=== PATIENT | female | born 1990 | race Two or more races ===

== ENCOUNTER 2019-12-08 14:47 | Inpatient (IN) | payer OTHER ==
[~2019-12-08 14:47] MED LIST: Bupivacaine 0.25% 10 ML SDV ONE
[2019-12-08] MEDS ORDERED: diphenhydrAMINE 50 MG/ML SDV IVPUSH PRN (14:54)
[2019-12-08] MEDS ORDERED: Bupivacaine/fentaNYL/NS 100 ML Bag EPIDUR PRN (14:54)
[2019-12-08] MEDS ORDERED: ePHEDrine 50 MG/ML SDV IVPUSH PRN (14:54)
[2019-12-08] MEDS ORDERED: fentaNYL 100 MCG/2 ML SDV EPIDUR PRN (14:54)
[2019-12-08] MEDS ORDERED: Sodium Chloride 0.9% 10 ML Syringe FLUSH PRN (15:02)
[2019-12-08] MEDS ORDERED: Oxytocin/Lactated Ringers 10 UNIT/1,000 ML BAG IV SCH (15:15)
[2019-12-08] MEDS ORDERED: Lactated Ringers 1,000 ML IV SCH (15:15)
--- NOTE | 2019-12-08 15:20 | PCM.LDHP ---
L&D History of Present Illness - General Date of Service: 12/08/19 Admit Problem/Dx: Patient Status Order with Admit Dx/Problem 12/08/19 15:02 Patient Status [ADT] Routine Admission Diagnosis/Problem Admission Diagnosis/Problem Source of Information: Patient History Limitations: Reports: No Limitations - History of Present Illness Introduction:: 28 y/o AMRIK 12/20/2019 EGA 38w2d seen earlier in L&D dismissed, howevere contractions increased in frequency and suration and returned to L&D and 9 cm dilated. GBS negative. blood type A positive antibody screen negative, hemoglobin/hematocrit 12.6/37.8 platelets 292,000 rubella immune. On 10/01/19 serology nonreactive. On 06/11/2019 mixed [place] on urine culture, hepatitis B surface antigen and HIV were negative. GC, a probe negative. 10/01/19 hemoglobin/hematocrit 10.0/31.4 platelets 277,001 hour OB glucose screen 119. 1/ hemoglobin/hematocrit 11.4/36.4 platelets 252,000. To08/03/20 group B strep negative. Plan delivery Improves with: Reports: None Worsens with: Reports: None Associated Symptoms: Reports: N H&P Review of Systems - Review of Systems: Review Of Systems: See Below General: Reports: No Symptoms HEENT: Reports: No Symptoms Pulmonary: Reports: No Symptoms Cardiovascular: Reports: No Symptoms Gastrointestinal: Reports: No Symptoms Genitourinary: Reports: No Symptoms Musculoskeletal: Reports: No Symptoms Skin: Reports: No Symptoms Psychiatric: Reports: No Symptoms Neurological: Reports: No Symptoms Hematologic/Lymphatic: Reports: No Symptoms Immunologic: Reports: No Symptoms L&D Exam - Exam Exam: See Below - OB Specific Fundal Height In cm: 39 Contraction Duration (sec): 60 Contraction Frequency (min): 3 Contraction Intensity: Strong Movement: Active Heart Tones: Present Heart Rate (FHR) Variability: Moderate (6-25 bmp) Presentation: Vertex - Tillman Score Tillman Score Cervix Position: Anterior Tillman Score Consistency: Soft Tillman Score Effacement: >80% Tillman Score Dilation: > 5 cm Tillman Score Infant's Station: +1, +2 Tillman Score Total: 13 - Exam General: Alert, Oriented HEENT: Conjunctiva Clear, Mucosa Moist & [place] Neck: Supple, Trachea Midline Lungs: Clear to Auscultation, Normal Respiratory Effort Cardiovascular: Regular Rate, Regular Rhythm GI/Abdominal Exam: Normal Bowel Sounds, Soft, Non-Tender Genitourinary: Normal external exam Extremities: Normal Inspection, Non-Tender, No Pedal Edema, Normal Capillary Refill Skin: Warm, Dry Psychiatric: Alert, Normal Affect, Normal Mood - Patient Data Lab Results Last 24 hrs: Laboratory Results - last 24 hr 12/08/19 Range/Units 15:01 WBC 9.56 (3.98-10.04) K/mm3 RBC 4.71 (3.98-5.22) M/mm3 Hgb 12.7 (11.2-15.7) gm/dl Hct 39.6 (34.1-44.9) % MCV 84.1 (79.4-94.8) fl MCH 27.0 (25.6-32.2) pg MCHC 32.1 L (32.2-35.5) g/dl RDW Std Deviation 55.5 H (36.4-46.3) fL Plt Count 240 (182-369) K/mm3 MPV 9.8 (9.4-12.3) fl Neut % (Auto) 68.2 (34.0-71.1) % Lymph % (Auto) 25.0 (19.3-51.7) % [place] % (Auto) 6.0 (4.7-12.5) % Eos % (Auto) 0.4 L (0.7-5.8) Baso % (Auto) 0.1 (0.1-1.2) % Neut # (Auto) 6.52 H (1.56-6.13) K/mm3 Lymph # (Auto) 2.39 (1.18-3.74) K/mm3 [place] # (Auto) 0.57 H (0.24-0.36) K/mm3 Eos # (Auto) 0.04 (0.04-0.36) K/mm3 Baso # (Auto) 0.01 (0.01-0.08) K/mm3 Result Diagrams: 12/08/19 15:01 - Problem List (1) 38 weeks gestation of SNOMED Code(s): 35969391 ICD Code: Z3A.38 - 38 WEEKS GESTATION OF Status: Acute Current Visit: Yes Problem List Initiated/Reviewed/Updated: No Orders Last 24hrs: Active Orders 24 hr Category Date Time Status Patient Status [ADT] Routine ADT 12/08/19 15:02 Active Activity as Tolerated [RC] PFP Care 12/08/19 15:02 Active Communication Order [RC] ASDIRECTED Care 12/08/19 15:02 Active Heart Tones [RC] ASDIRECTED Care 12/08/19 15:03 Active Non Stress Test [RC] PER UNIT ROUTINE Care 12/08/19 15:02 Active Notify Provider [RC] ASDIRECTED Care 12/08/19 14:54 Active Notify Provider [RC] PFP Care 12/08/19 15:02 Active Notify Provider [RC] PRN Care 12/08/19 15:02 Active Peripheral IV Care [RC] . DIRECTED Care 12/08/19 15:03 Active Vital Signs [RC] PER UNIT ROUTINE Care 12/08/19 15:02 Active Regular Diet [DIET] Diet 12/08/19 Dinner Active CBC WITH AUTO DIFF [HEME] Stat Lab 12/08/19 15:01 Received RAPID PLASMA REAGIN,RPR [CHEM] Routine Lab 12/08/19 15:01 Received Bupivacaine/fentaNYL/NS [fentaNYL/Bupivacaine/NS 2 MCG- Med 12/08/19 14:54 Pending 0.125% 100 ML] 100 ml EPIDUR ASDIRECTED PRN Lactated Ringers [Ringers, Lactated] 1,000 ml Med 12/08/19 15:15 Ordered IV ASDIRECTED Oxytocin/Lactated Ringers [Pitocin in LR 10 Units/1,000 Med 12/08/19 15:15 Ordered ML] 10 unit in 1,000 ml IV .CONTINUOUS Sodium Chloride 0.9% [Saline Flush] Med 12/08/19 15:02 Ordered 10 ml FLUSH ASDIRECTED PRN diphenhydrAMINE [Benadryl] Med 12/08/19 14:54 Ordered 25 mg IVPUSH Q6H PRN ePHEDrine [ePHEDrine sulfate] Med 12/08/19 14:54 Ordered 5 mg IVPUSH ASDIRECTED PRN fentaNYL [Sublimaze] Med 12/08/19 14:54 Ordered 100 mcg EPIDUR Q3H PRN Electronic Heart Tones Ext w TOCO [WOMSER] Oth 12/08/19 15:02 Ordered Routine Electronic Heart Tones Internal [WOMSER] Per Unit Oth 12/08/19 15:02 Ordered Routine Peripheral IV Insertion Adult [OM.PC] Routine Oth 12/08/19 15:02 Ordered Resuscitation Status Routine Resus Stat 12/08/19 15:02 Ordered Medication Orders Diphenhydramine HCl (Benadryl) 25 mg IVPUSH Q6H PRN PRN Reason: pruritis Ephedrine Sulfate (Ephedrine Sulfate) 5 mg IVPUSH ASDIRECTED PRN PRN Reason: Hypotension Fentanyl (Sublimaze) 100 mcg EPIDUR Q3H PRN PRN Reason: Pain Fentanyl/Bupivacaine HCl (Fentanyl/Bupivacaine/Ns 2 Mcg-0.125% 100 Ml) 100 ml EPIDUR ASDIRECTED PRN PRN Reason: Pain Lactated Ringer's (Ringers, Lactated) 1,000 mls @ 100 mls/hr IV ASDIRECTED CESAR Oxytocin/Lactated Ringer's (Pitocin In Lr 10 Units/1,000 Ml) 10 unit in 1,000 mls @ 100 mls/hr IV .CONTINUOUS CESAR; Protocol Sodium Chloride (Saline Flush) 10 ml FLUSH ASDIRECTED PRN PRN Reason: Keep Vein Open Assessment/Plan Comment:: Plan delivery.
--- NOTE | 2019-12-08 15:23 | PCM.PREANE ---
Preanesthetic Assessment - Procedure Proposed Procedure: spinal for labor and delivey - Anesthesia/Transfusion/Family Hx Anesthesia History: Prior Anesthesia Without Reaction Family History of Anesthesia Reaction: No Transfusion History: No Prior Transfusion(s) - Review of Systems General: No Symptoms Pulmonary: No Symptoms Cardiovascular: No Symptoms Gastrointestinal: No Symptoms Neurological: No Symptoms Other: Reports: None - Physical Assessment Vital Signs: 146/90 72 100% 20 Height: 5 ft 9 in Weight: 110.223 kg ASA Class: 2 Mental Status: Alert & Oriented x3 Airway Class: Mallampati = 1 Dentition: Reports: Normal Dentition Thyro-Mental Finger Breadths: 3 Mouth Opening Finger Breadths: 3 ROM/Head Extension: Full Lungs: Clear to Auscultation, Normal Respiratory Effort Cardiovascular: Regular Rate, Regular Rhythm - Lab Values: Laboratory Last Values WBC 9.56 K/mm3 (3.98-10.04) 12/08/19 15:01 RBC 4.71 M/mm3 (3.98-5.22) 12/08/19 15:01 Hgb 12.7 gm/dl (11.2-15.7) 12/08/19 15:01 Hct 39.6 % (34.1-44.9) 12/08/19 15:01 MCV 84.1 fl (79.4-94.8) 12/08/19 15:01 MCH 27.0 pg (25.6-32.2) 12/08/19 15:01 MCHC 32.1 g/dl (32.2-35.5) L 12/08/19 15:01 RDW Std Deviation 55.5 fL (36.4-46.3) H 12/08/19 15:01 Plt Count 240 K/mm3 (182-369) 12/08/19 15:01 MPV 9.8 fl (9.4-12.3) 12/08/19 15:01 Neut % (Auto) 68.2 % (34.0-71.1) 12/08/19 15:01 Lymph % (Auto) 25.0 % (19.3-51.7) 12/08/19 15:01 [place] % (Auto) 6.0 % (4.7-12.5) 12/08/19 15:01 Eos % (Auto) 0.4 (0.7-5.8) L 12/08/19 15:01 Baso % (Auto) 0.1 % (0.1-1.2) 12/08/19 15:01 Neut # (Auto) 6.52 K/mm3 (1.56-6.13) H 12/08/19 15:01 Lymph # (Auto) 2.39 K/mm3 (1.18-3.74) 12/08/19 15:01 [place] # (Auto) 0.57 K/mm3 (0.24-0.36) H 12/08/19 15:01 Eos # (Auto) 0.04 K/mm3 (0.04-0.36) 12/08/19 15:01 Baso # (Auto) 0.01 K/mm3 (0.01-0.08) 12/08/19 15:01 - Blood Blood Available: No - Acknowledgements Anesthesia Type Planned: Spinal Pt an Appropriate Candidate for the Planned Anesthesia: Yes Alternatives and Risks of Anesthesia Discussed w Pt/Guardian: Yes Pt/Guardian Understands and Agrees with Anesthesia Plan: Yes PreAnesthesia Questionnaire Cardiovascular History: Reports: None Respiratory History: Reports: None : 3 (38 weeks) Para: 2 - Past Surgical History HEENT Surgical History: Reports: Myringotomy w Tube(s), Tonsillectomy - History Comment History Comment: vits and iron and stool softener - SUBSTANCE USE Smoking Status *Q: Former Smoker Tobacco Use Within Last Twelve Months: No Second Hand Smoke Exposure: No Days Per Week of Alcohol Use: 0 Recreational Drug Use History: No - CURRENT (IN HOUSE) MEDS Current Meds: Current Medications Diphenhydramine HCl (Benadryl) 25 mg IVPUSH Q6H PRN PRN Reason: pruritis Ephedrine Sulfate (Ephedrine Sulfate) 5 mg IVPUSH ASDIRECTED PRN PRN Reason: Hypotension Fentanyl (Sublimaze) 100 mcg EPIDUR Q3H PRN PRN Reason: Pain Fentanyl/Bupivacaine HCl (Fentanyl/Bupivacaine/Ns 2 Mcg-0.125% 100 Ml) 100 ml EPIDUR ASDIRECTED PRN PRN Reason: Pain Lactated Ringer's (Ringers, Lactated) 1,000 mls @ 100 mls/hr IV ASDIRECTED CESAR Oxytocin/Lactated Ringer's (Pitocin In Lr 10 Units/1,000 Ml) 10 unit in 1,000 mls @ 100 mls/hr IV .CONTINUOUS CESAR; Protocol Sodium Chloride (Saline Flush) 10 ml FLUSH ASDIRECTED PRN PRN Reason: Keep Vein Open
--- NOTE | 2019-12-08 16:02 | PCM.DEL ---
L & D Note - General Info Date of Service: 12/08/19 Mother's Due Date: 12/20/19 - Delivery Note Labor: Spontaneous Delivery Outcome: Livebirth (Male liveborn Sunday to at 1534 hrs. GERARDO Apgars 8/9. Weight 30/5/30 grams/7 pounds 12.5 ounces nuchal cord times one easily reduced) Delivery Method: Spontaneous Vaginal Delivery-Single Delivery Mode: Spontaneous Presentation: Left Occiput Anterior (GERARDO) Nuchal Cord: Present Prep: Povidone-Iodine (Betadine (Times one easily reduced over the head) Anesthesia Type: Spinal Amniotic Fluid Description: Clear (1524 anatomy) Episiotomy Type: None Laceration: 2nd Degree Suture type: Other (Monocryl) Suture size: 3-0 Placenta: Intact, Spontaneous (1537 hrs. Sunday to examined and tacked no missing cotyledons membranes no missing membrane segments) Cord: 3 Vessels Estimated Blood Loss: 250 : Suctioned, Bulb Syringe, Stimulated, Warmed, [place] Used, Warmer Used Provider: Dwight Goodwin Score 1 min: 8 Score 5 min: 9 - General Info Date of Service: 12/08/19 Functional Status: Reports: Pain Controlled - Review of Systems General: Reports: No Symptoms HEENT: Reports: No Symptoms Pulmonary: Reports: No Symptoms Cardiovascular: Reports: No Symptoms Gastrointestinal: Reports: No Symptoms Genitourinary: Reports: No Symptoms Musculoskeletal: Reports: No Symptoms Skin: Reports: No Symptoms Neurological: Reports: No Symptoms Psychiatric: Reports: No Symptoms - Patient Data Weight - Most Recent: 243 lb Lab Results Last 24 Hours: Laboratory Results - last 24 hr 12/08/19 Range/Units 15:01 WBC 9.56 (3.98-10.04) K/mm3 RBC 4.71 (3.98-5.22) M/mm3 Hgb 12.7 (11.2-15.7) gm/dl Hct 39.6 (34.1-44.9) % MCV 84.1 (79.4-94.8) fl MCH 27.0 (25.6-32.2) pg MCHC 32.1 L (32.2-35.5) g/dl RDW Std Deviation 55.5 H (36.4-46.3) fL Plt Count 240 (182-369) K/mm3 MPV 9.8 (9.4-12.3) fl Neut % (Auto) 68.2 (34.0-71.1) % Lymph % (Auto) 25.0 (19.3-51.7) % [place] % (Auto) 6.0 (4.7-12.5) % Eos % (Auto) 0.4 L (0.7-5.8) Baso % (Auto) 0.1 (0.1-1.2) % Neut # (Auto) 6.52 H (1.56-6.13) K/mm3 Lymph # (Auto) 2.39 (1.18-3.74) K/mm3 [place] # (Auto) 0.57 H (0.24-0.36) K/mm3 Eos # (Auto) 0.04 (0.04-0.36) K/mm3 Baso # (Auto) 0.01 (0.01-0.08) K/mm3 Manual Slide Review Abnormal smear Med Orders - Current: Current Medications Diphenhydramine HCl (Benadryl) 25 mg IVPUSH Q6H PRN PRN Reason: pruritis Ephedrine Sulfate (Ephedrine Sulfate) 5 mg IVPUSH ASDIRECTED PRN PRN Reason: Hypotension Fentanyl (Sublimaze) 100 mcg EPIDUR Q3H PRN PRN Reason: Pain Fentanyl/Bupivacaine HCl (Fentanyl/Bupivacaine/Ns 2 Mcg-0.125% 100 Ml) 100 ml EPIDUR ASDIRECTED PRN PRN Reason: Pain Lactated Ringer's (Ringers, Lactated) 1,000 mls @ 100 mls/hr IV ASDIRECTED CESAR Oxytocin/Lactated Ringer's (Pitocin In Lr 10 Units/1,000 Ml) 10 unit in 1,000 mls @ 100 mls/hr IV .CONTINUOUS CESAR; Protocol Sodium Chloride (Saline Flush) 10 ml FLUSH ASDIRECTED PRN PRN Reason: Keep Vein Open - Exam General: Alert, Oriented HEENT: Pupils Equal, Mucous Membr. Moist/[place] Neck: Supple Lungs: Clear to Auscultation, Normal Respiratory Effort Cardiovascular: Regular Rate, Regular Rhythm GI/Abdominal Exam: Normal Bowel Sounds, Soft, Non-Tender (Female) Exam: Vaginal Tears (2nd degree laceration at delivery repaired 3-0 monocryl x1) Extremities: Normal Inspection, Non-Tender, No Pedal Edema, Normal Capillary Refill Skin: Warm, Dry, Intact Psy/Mental Status: Alert, Normal Affect, Normal Mood - Problem List & Annotations (1) 38 weeks gestation of SNOMED Code(s): 26724656 Code(s): Z3A.38 - 38 WEEKS GESTATION OF Status: Acute Current Visit: Yes (2) Second degree perineal laceration during delivery SNOMED Code(s): 7157938 Code(s): O70.1 - SECOND DEGREE PERINEAL LACERATION DURING DELIVERY Status: Acute Current Visit: Yes (3) Labor and delivery complicated by cord around neck, without compression, not applicable or unspecified SNOMED Code(s): 352759524, 632401367 Code(s): O69.81X0 - LABOR AND DEL COMP BY CORD AROUND NECK, W/O COMPRSN, UNSP Status: Acute Current Visit: Yes - Problem List Review Problem List Initiated/Reviewed/Updated: No - My Orders Last 24 Hours: My Active Orders 12/08/19 15:01 RAPID PLASMA REAGIN,RPR [CHEM] Routine 12/08/19 15:02 Patient Status [ADT] Routine Activity as Tolerated [RC] PFP Communication Order [RC] ASDIRECTED Non Stress Test [RC] PER UNIT ROUTINE Notify Provider [RC] PFP Notify Provider [RC] PRN Vital Signs [RC] PER UNIT ROUTINE Sodium Chloride 0.9% [Saline Flush] 10 ml FLUSH ASDIRECTED PRN Electronic Heart Tones Ext w TOCO [WOMSER] Routine Electronic Heart Tones Internal [WOMSER] Per Unit Routine Peripheral IV Insertion Adult [OM.PC] Routine Resuscitation Status Routine 12/08/19 15:03 Heart Tones [RC] ASDIRECTED Peripheral IV Care [RC] . DIRECTED 12/08/19 15:15 Lactated Ringers [Ringers, Lactated] 1,000 ml IV ASDIRECTED Oxytocin/Lactated Ringers [Pitocin in LR 10 Units/1,000 ML] 10 unit in 1,000 ml IV .CONTINUOUS 12/08/19 Dinner Regular Diet [DIET] - Plan Plan:: Plan delivery.
[2019-12-08] MEDS ORDERED: Docusate Sodium 100 MG Cap PO PRN (16:19)
[2019-12-08] MEDS ORDERED: Benzocaine/Menthol 20%-0.5% Spray 56 GM Canister TOP PRN (16:19)
[2019-12-08] MEDS ORDERED: Witch Hazel Medicated Pads 40/Jar TOP PRN (16:19)
[2019-12-08] MEDS: Ibuprofen 600 MG Tab PO PRN ×2 (19:50→23:56)
--- NOTE | 2019-12-09 07:42 | PCM48HPAN ---
Post Anesthesia Note - EVALUATION WITHIN 48HRS OF ANESTHETIC Vital Signs in Normal Range: Yes Patient Participated in Evaluation: Yes Respiratory Function Stable: Yes Airway Patent: Yes Cardiovascular Function Stable: Yes Hydration Status Stable: Yes Pain Control Satisfactory: Yes Nausea and Vomiting Control Satisfactory: Yes Mental Status Recovered: Yes Vital Signs: Last Vital Signs Temp 36.8 C 12/09/19 02:51 Pulse 78 12/09/19 02:51 Resp 16 12/09/19 02:55 BP 119/96 H 12/09/19 02:51 Pulse Ox 98 12/09/19 02:51
[2019-12-09] MEDS: Acetaminophen 325 MG Tab PO PRN ×2 (08:15→20:10)
--- NOTE | 2019-12-09 09:07 | PCM.SN ---
- Free Text/Narrative Note: PPD#1 Breast feeding. Uterus involuting normally, no heavy vaginal bleeding, no leg cramping. No shortness of breath. Doing well, probably home tomorrow. HgB 10.9 this morning.
[2019-12-09] MEDS: Ibuprofen 600 MG Tab PO PRN ×2 (12:13→20:10)
[2019-12-10] MEDS: Ibuprofen 600 MG Tab PO PRN (05:12)
--- NOTE | 2019-12-10 08:37 | PCM.DCSUM1 ---
Discharge Summary - Hospital Course Free Text/Narrative:: [facility] LIVE L/D Delivery Note Patient Name: SANDRA MEANS Date of : 89 Patient Status: Inpatient Attending Provider: Dwight Goodwin Date: 12/08/19 15:57 Initialization Date: 12/08/19 15:57 L & D Note - General Info Date of Service: 12/08/19 Mother's Due Date: 12/20/19 - Delivery Note Labor: Spontaneous Delivery Outcome: Livebirth (Male liveborn Sunday to at 1534 hrs. GERARDO Apgars 8/9. Weight 30/5/30 grams/7 pounds 12.5 ounces nuchal cord times one easily reduced) Infant Delivery Method: Spontaneous Vaginal Delivery-Single Delivery Mode: Spontaneous Presentation: Left Occiput Anterior (GERARDO) Nuchal Cord: Present Prep: Povidone-Iodine (Betadine (Times one easily reduced over the head) Anesthesia Type: Spinal Amniotic Fluid Description: Clear (1524 anatomy) Episiotomy Type: None Laceration: 2nd Degree Suture type: Other (Monocryl) Suture size: 3-0 Placenta: Intact, Spontaneous (1537 hrs. Sunday to examined and tacked no missing cotyledons membranes no missing membrane segments) Cord: 3 Vessels Estimated Blood Loss: 250 : Suctioned, Bulb Syringe, Stimulated, Warmed, Igo Used, Warmer Used Provider: Dwight Goodwin Score 1 min: 8 Score 5 min: 9 - General Info Date of Service: 12/08/19 Functional Status: Reports: Pain Controlled - Review of Systems General: Reports: No Symptoms HEENT: Reports: No Symptoms Pulmonary: Reports: No Symptoms Cardiovascular: Reports: No Symptoms Gastrointestinal: Reports: No Symptoms Genitourinary: Reports: No Symptoms Musculoskeletal: Reports: No Symptoms Skin: Reports: No Symptoms Neurological: Reports: No Symptoms Psychiatric: Reports: No Symptoms - Patient Data Weight - Most Recent: 243 lb Lab Results Last 24 Hours: Laboratory Results - last 24 hr 12/08/19 Range/Units 15:01 WBC 9.56 (3.98-10.04) K/mm3 RBC 4.71 (3.98-5.22) M/mm3 Hgb 12.7 (11.2-15.7) gm/dl Hct 39.6 (34.1-44.9) % MCV 84.1 (79.4-94.8) fl MCH 27.0 (25.6-32.2) pg MCHC 32.1 L (32.2-35.5) g/dl RDW Std Deviation 55.5 H (36.4-46.3) fL Plt Count 240 (182-369) K/mm3 MPV 9.8 (9.4-12.3) fl Neut % (Auto) 68.2 (34.0-71.1) % Lymph % (Auto) 25.0 (19.3-51.7) % Kimball % (Auto) 6.0 (4.7-12.5) % Eos % (Auto) 0.4 L (0.7-5.8) Baso % (Auto) 0.1 (0.1-1.2) % Neut # (Auto) 6.52 H (1.56-6.13) K/mm3 Lymph # (Auto) 2.39 (1.18-3.74) K/mm3 Kimball # (Auto) 0.57 H (0.24-0.36) K/mm3 Eos # (Auto) 0.04 (0.04-0.36) K/mm3 Baso # (Auto) 0.01 (0.01-0.08) K/mm3 Manual Slide Review Abnormal smear Med Orders - Current: Current Medications Diphenhydramine HCl (Benadryl) 25 mg IVPUSH Q6H PRN PRN Reason: pruritis Ephedrine Sulfate (Ephedrine Sulfate) 5 mg IVPUSH ASDIRECTED PRN PRN Reason: Hypotension Fentanyl (Sublimaze) 100 mcg EPIDUR Q3H PRN PRN Reason: Pain Fentanyl/Bupivacaine HCl (Fentanyl/Bupivacaine/Ns 2 Mcg-0.125% 100 Ml) 100 ml EPIDUR ASDIRECTED PRN PRN Reason: Pain Lactated Ringer's (Ringers, Lactated) 1,000 mls @ 100 mls/hr IV ASDIRECTED CESAR Oxytocin/Lactated Ringer's (Pitocin In Lr 10 Units/1,000 Ml) 10 unit in 1,000 mls @ 100 mls/hr IV .CONTINUOUS CESAR; Protocol Sodium Chloride (Saline Flush) 10 ml FLUSH ASDIRECTED PRN PRN Reason: Keep Vein Open - Exam General: Alert, Oriented HEENT: Pupils Equal, Mucous Membr. Moist/[place] Neck: Supple Lungs: Clear to Auscultation, Normal Respiratory Effort Cardiovascular: Regular Rate, Regular Rhythm GI/Abdominal Exam: Normal Bowel Sounds, Soft, Non-Tender (Female) Exam: Vaginal Tears (2nd degree laceration at delivery repaired 3-0 monocryl x1) Extremities: Normal Inspection, Non-Tender, No Pedal Edema, Normal Capillary Refill Skin: Warm, Dry, Intact Psy/Mental Status: Alert, Normal Affect, Normal Mood - Problem List & Annotations (1) 38 weeks gestation of SNOMED Code(s): 35479501 Code(s): Z3A.38 - 38 WEEKS GESTATION OF Status: Acute Current Visit: Yes (2) Second degree perineal laceration during delivery SNOMED Code(s): 1103317 Code(s): O70.1 - SECOND DEGREE PERINEAL LACERATION DURING DELIVERY Status: Acute Current Visit: Yes (3) Labor and delivery complicated by cord around neck, without compression, not applicable or unspecified SNOMED Code(s): 250623823, 224932426 Code(s): O69.81X0 - LABOR AND DEL COMP BY CORD AROUND NECK, W/O COMPRSN, UNSP Status: Acute Current Visit: Yes - Problem List Review Problem List Initiated/Reviewed/Updated: No - My Orders Last 24 Hours: My Active Orders 12/08/19 15:01 RAPID PLASMA REAGIN,RPR [CHEM] Routine 12/08/19 15:02 Patient Status [ADT] Routine Activity as Tolerated [RC] PFP Communication Order [RC] ASDIRECTED Non Stress Test [RC] PER UNIT ROUTINE Notify Provider [RC] PFP Notify Provider [RC] PRN Vital Signs [RC] PER UNIT ROUTINE Sodium Chloride 0.9% [Saline Flush] 10 ml FLUSH ASDIRECTED PRN Electronic Heart Tones Ext w TOCO [WOMSER] Routine Electronic Heart Tones Internal [WOMSER] Per Unit Routine Peripheral IV Insertion Adult [OM.PC] Routine Resuscitation Status Routine 12/08/19 15:03 Heart Tones [RC] ASDIRECTED Peripheral IV Care [RC] . DIRECTED 12/08/19 15:15 Lactated Ringers [Ringers, Lactated] 1,000 ml IV ASDIRECTED Oxytocin/Lactated Ringers [Pitocin in LR 10 Units/1,000 ML] 10 unit in 1,000 ml IV .CONTINUOUS 12/08/19 Dinner Regular Diet [DIET] - Plan Plan:: Plan delivery. HPI Initial Comments: [facility] LIVE L/D Delivery Note Patient Name: SANDRA MEANS Date of : 89 Patient Status: Inpatient Attending Provider: Dwight Goodwin Date: 12/08/19 15:57 Initialization Date: 12/08/19 15:57 L & D Note - General Info Date of Service: 12/08/19 Mother's Due Date: 12/20/19 - Delivery Note Labor: Spontaneous Delivery Outcome: Livebirth (Male liveborn Sunday to at 1534 hrs. GERARDO Apgars 8/9. Weight 30/5/30 grams/7 pounds 12.5 ounces nuchal cord times one easily reduced) Infant Delivery Method: Spontaneous Vaginal Delivery-Single Infant Delivery Mode: Spontaneous Presentation: Left Occiput Anterior (GERARDO) Nuchal Cord: Present Prep: Povidone-Iodine (Betadine (Times one easily reduced over the head) Anesthesia Type: Spinal Amniotic Fluid Description: Clear (1524 anatomy) Episiotomy Type: None Laceration: 2nd Degree Suture type: Other (Monocryl) Suture size: 3-0 Placenta: Intact, Spontaneous (1537 hrs. Sunday to examined and tacked no missing cotyledons membranes no missing membrane segments) Cord: 3 Vessels Estimated Blood Loss: 250 : Suctioned, Bulb Syringe, Stimulated, Warmed, Igo Used, Warmer Used Provider: Dwight Goodwin Score 1 min: 8 Score 5 min: 9 - General Info Date of Service: 12/08/19 Functional Status: Reports: Pain Controlled - Review of Systems General: Reports: No Symptoms HEENT: Reports: No Symptoms Pulmonary: Reports: No Symptoms Cardiovascular: Reports: No Symptoms Gastrointestinal: Reports: No Symptoms Genitourinary: Reports: No Symptoms Musculoskeletal: Reports: No Symptoms Skin: Reports: No Symptoms Neurological: Reports: No Symptoms Psychiatric: Reports: No Symptoms - Patient Data Weight - Most Recent: 243 lb Lab Results Last 24 Hours: Laboratory Results - last 24 hr 12/08/19 Range/Units 15:01 WBC 9.56 (3.98-10.04) K/mm3 RBC 4.71 (3.98-5.22) M/mm3 Hgb 12.7 (11.2-15.7) gm/dl Hct 39.6 (34.1-44.9) % MCV 84.1 (79.4-94.8) fl MCH 27.0 (25.6-32.2) pg MCHC 32.1 L (32.2-35.5) g/dl RDW Std Deviation 55.5 H (36.4-46.3) fL Plt Count 240 (182-369) K/mm3 MPV 9.8 (9.4-12.3) fl Neut % (Auto) 68.2 (34.0-71.1) % Lymph % (Auto) 25.0 (19.3-51.7) % Kimball % (Auto) 6.0 (4.7-12.5) % Eos % (Auto) 0.4 L (0.7-5.8) Baso % (Auto) 0.1 (0.1-1.2) % Neut # (Auto) 6.52 H (1.56-6.13) K/mm3 Lymph # (Auto) 2.39 (1.18-3.74) K/mm3 Kimball # (Auto) 0.57 H (0.24-0.36) K/mm3 Eos # (Auto) 0.04 (0.04-0.36) K/mm3 Baso # (Auto) 0.01 (0.01-0.08) K/mm3 Manual Slide Review Abnormal smear Med Orders - Current: Current Medications Diphenhydramine HCl (Benadryl) 25 mg IVPUSH Q6H PRN PRN Reason: pruritis Ephedrine Sulfate (Ephedrine Sulfate) 5 mg IVPUSH ASDIRECTED PRN PRN Reason: Hypotension Fentanyl (Sublimaze) 100 mcg EPIDUR Q3H PRN PRN Reason: Pain Fentanyl/Bupivacaine HCl (Fentanyl/Bupivacaine/Ns 2 Mcg-0.125% 100 Ml) 100 ml EPIDUR ASDIRECTED PRN PRN Reason: Pain Lactated Ringer's (Ringers, Lactated) 1,000 mls @ 100 mls/hr IV ASDIRECTED CESAR Oxytocin/Lactated Ringer's (Pitocin In Lr 10 Units/1,000 Ml) 10 unit in 1,000 mls @ 100 mls/hr IV .CONTINUOUS CESAR; Protocol Sodium Chloride (Saline Flush) 10 ml FLUSH ASDIRECTED PRN PRN Reason: Keep Vein Open - Exam General: Alert, Oriented HEENT: Pupils Equal, Mucous Membr. Moist/[place] Neck: Supple Lungs: Clear to Auscultation, Normal Respiratory Effort Cardiovascular: Regular Rate, Regular Rhythm GI/Abdominal Exam: Normal Bowel Sounds, Soft, Non-Tender (Female) Exam: Vaginal Tears (2nd degree laceration at delivery repaired 3-0 monocryl x1) Extremities: Normal Inspection, Non-Tender, No Pedal Edema, Normal Capillary Refill Skin: Warm, Dry, Intact Psy/Mental Status: Alert, Normal Affect, Normal Mood - Problem List & Annotations (1) 38 weeks gestation of SNOMED Code(s): 03858398 Code(s): Z3A.38 - 38 WEEKS GESTATION OF Status: Acute Current Visit: Yes (2) Second degree perineal laceration during delivery SNOMED Code(s): 5605540 Code(s): O70.1 - SECOND DEGREE PERINEAL LACERATION DURING DELIVERY Status: Acute Current Visit: Yes (3) Labor and delivery complicated by cord around neck, without compression, not applicable or unspecified SNOMED Code(s): 037474386, 468587525 Code(s): O69.81X0 - LABOR AND DEL COMP BY CORD AROUND NECK, W/O COMPRSN, UNSP Status: Acute Current Visit: Yes - Problem List Review Problem List Initiated/Reviewed/Updated: No - My Orders Last 24 Hours: My Active Orders 12/08/19 15:01 RAPID PLASMA REAGIN,RPR [CHEM] Routine 12/08/19 15:02 Patient Status [ADT] Routine Activity as Tolerated [RC] PFP Communication Order [RC] ASDIRECTED Non Stress Test [RC] PER UNIT ROUTINE Notify Provider [RC] PFP Notify Provider [RC] PRN Vital Signs [RC] PER UNIT ROUTINE Sodium Chloride 0.9% [Saline Flush] 10 ml FLUSH ASDIRECTED PRN Electronic Heart Tones Ext w TOCO [WOMSER] Routine Electronic Heart Tones Internal [WOMSER] Per Unit Routine Peripheral IV Insertion Adult [OM.PC] Routine Resuscitation Status Routine 12/08/19 15:03 Heart Tones [RC] ASDIRECTED Peripheral IV Care [RC] . DIRECTED 12/08/19 15:15 Lactated Ringers [Ringers, Lactated] 1,000 ml IV ASDIRECTED Oxytocin/Lactated Ringers [Pitocin in LR 10 Units/1,000 ML] 10 unit in 1,000 ml IV .CONTINUOUS 12/08/19 Dinner Regular Diet [DIET] - Plan Plan:: Plan delivery. Brief History: [facility] LIVE . L/D Delivery Note. Patient Name: SANDRA MEANSNDedical Record Number: [id number]. Date of : Patient Status: Inpatient. Attending Provider: Dwight Goodwin Number: [id number]. Date: 12/08/19 15:57Initialization Date: 12/08/19 15:57. L & D Note. - General Info. Date of Service: 12/08/19. Mother's Due Date: 12/20/19. - Delivery Note. Labor: Spontaneous. Delivery Outcome: Livebirth ( Male liveborn Sunday to at 1534 hrs. GERARDO Apgars 8/9. Weight 30/5/30 grams/7 pounds 12.5 ounces nuchal cord times one easily reduced). Infant Delivery Method: Spontaneous Vaginal Delivery-Single. Infant Delivery Mode: Spontaneous. Presentation: Left Occiput Anterior (GERARDO). Nuchal Cord: Present. Prep: Povidone-Iodine (Betadine (Times one easily reduced over the head). Anesthesia Type: Spinal. Amniotic Fluid Description: Clear (1524 anatomy). Episiotomy Type: None. Laceration: 2nd Degree. Suture type: Other ( Monocryl). Suture size: 3-0. Placenta: Intact, Spontaneous (1537 hrs. Sunday to examined and tacked no missing cotyledons membranes no missing membrane segments). Cord: 3 Vessels. Estimated Blood Loss: 250. : Suctioned, Bulb Syringe, Stimulated, Warmed, Igo Used, Warmer Used. Provider: Dwight Goodwin. Score 1 min: 8. Score 5 min : 9. - General Info. Date of Service: 12/08/19. Functional Status: Reports: Pain Controlled. - Review of Systems. General: Reports: No Symptoms. HEENT: Reports: No Symptoms. Pulmonary: Reports: No Symptoms. Cardiovascular: Reports : No Symptoms. Gastrointestinal: Reports: No Symptoms. Genitourinary: Reports : No Symptoms. Musculoskeletal: Reports: No Symptoms. Skin: Reports: No Symptoms. Neurological: Reports: No Symptoms. Psychiatric: Reports: No Symptoms. - Patient Data. Weight - Most Recent: 243 lb. Lab Results Last 24 Hours: Laboratory Results - last 24 hr. 12/08/19Range/Units. 15:01. WBC 9.56 (3.98-10.04) K/mm3. RBC 4.71 (3.98-5.22) M/mm3. Hgb 12.7 (11.2-15.7) gm/dl. Hct 39.6 (34.1-44.9) %. MCV 84.1 (79.4-94.8) fl. MCH 27.0 (25.6-32.2 ) pg. MCHC 32.1 L (32.2-35.5) g/dl. RDW Std Deviation 55.5 H (36.4-46.3) fL. Plt Count 240 (182-369) K/mm3. MPV 9.8 (9.4-12.3) fl. Neut % (Auto) 68.2 (34.0-71.1) %. Lymph % (Auto) 25.0 (19.3-51.7) %. Kimball % (Auto) 6.0 ( 4.7-12.5) %. Eos % (Auto) 0.4 L (0.7-5.8). Baso % (Auto) 0.1 (0.1-1.2) %. Neut # (Auto) 6.52 H (1.56-6.13) K/mm3. Lymph # (Auto) 2.39 (1.18-3.74) K/ mm3. Kimball # (Auto) 0.57 H (0.24-0.36) K/mm3. Eos # (Auto) 0.04 (0.04-0.36) K /mm3. Baso # (Auto) 0.01 (0.01-0.08) K/mm3. Manual Slide Review Abnormal smear. Med Orders - Current: Current Medications. Diphenhydramine HCl ( Benadryl) 25 mg IVPUSH Q6H PRN. PRN Reason: pruritis. Ephedrine Sulfate ( Ephedrine Sulfate) 5 mg IVPUSH ASDIRECTED PRN. PRN Reason: Hypotension. Fentanyl (Sublimaze) 100 mcg EPIDUR Q3H PRN. PRN Reason: Pain. Fentanyl/ Bupivacaine HCl (Fentanyl/Bupivacaine/Ns 2 Mcg-0.125% 100 Ml) 100 ml EPIDUR ASDIRECTED PRN. PRN Reason: Pain. Lactated Ringer's (Ringers, Lactated) 1, 000 mls @ 100 mls/hr IV ASDIRECTED CESAR. Oxytocin/Lactated Ringer's (Pitocin In Lr 10 Units/1,000 Ml) 10 unit in 1,000 mls @ 100 mls/hr IV .CONTINUOUS CESAR; Protocol. Sodium Chloride (Saline Flush) 10 ml FLUSH ASDIRECTED PRN. PRN Reason: Keep Vein Open. - Exam. General: Alert, Oriented. HEENT: Pupils Equal , Mucous Membr. Moist/[place]. Neck: Supple. Lungs: Clear to Auscultation, Normal Respiratory Effort. Cardiovascular: Regular Rate, Regular Rhythm. GI/ Abdominal Exam: Normal Bowel Sounds, Soft, Non-Tender. (Female) Exam: Vaginal Tears (2nd degree laceration at delivery repaired 3-0 monocryl x1). Extremities: Normal Inspection, Non-Tender, No Pedal Edema, Normal Capillary Refill. Skin: Warm, Dry, Intact. Psy/Mental Status: Alert, Normal Affect, Normal Mood. - Problem List & Annotations. (1) 38 weeks gestation of . SNOMED Code(s): 54671702. Code(s): Z3A.38 - 38 WEEKS GESTATION OF Status: Acute Current Visit: Yes. (2) Second degree perineal laceration during delivery. SNOMED Code(s): 3542410. Code(s): O70.1 - SECOND DEGREE PERINEAL LACERATION DURING DELIVERY Status: Acute Current Visit: Yes. (3) Labor and delivery complicated by cord around neck, without compression, not applicable or unspecified. SNOMED Code(s): 429680364, 709812975. Code(s): O69.81X0 - LABOR AND DEL COMP BY CORD AROUND NECK, W/O COMPRSN, UNSP Status: Acute Current Visit: Yes. - Problem List Review. Problem List Initiated/Reviewed/Updated: No. - My Orders. Last 24 Hours: My Active Orders. 12/08/19 15:01. RAPID PLASMA REAGIN,RPR [CHEM] Routine. 15:02. Patient Status [ADT] Routine. Activity as Tolerated [RC] PFP. Communication Order [RC] ASDIRECTED. Non Stress Test [RC] PER UNIT ROUTINE. Notify Provider [RC] PFP. Notify Provider [RC] PRN. Vital Signs [RC ] PER UNIT ROUTINE. Sodium Chloride 0.9% [Saline Flush] 10 ml FLUSH ASDIRECTED PRN. Electronic Heart Tones Ext w TOCO [WOMSER] Routine. Electronic Heart Tones Internal [WOMSER] Per Unit Routine. Peripheral IV Insertion Adult [OM.PC] Routine. Resuscitation Status Routine. 12/08/19 15: 03. Heart Tones [RC] ASDIRECTED. Peripheral IV Care [RC] . DIRECTED. 12/08/19 15:15. Lactated Ringers [Ringers, Lactated] 1,000 ml IV ASDIRECTED. Oxytocin/Lactated Ringers [Pitocin in LR 10 Units/1,000 ML] 10 unit in 1,000 ml IV .CONTINUOUS. 12/08/19 Dinner. Regular Diet [DIET]. - Plan. Plan:: Plan delivery. Diagnosis: Stroke: No - Discharge Data Discharge Date: 12/10/19 Discharge Disposition: Home, Self-Care 01 Condition: Good - Referral to Home Health Primary Care Physician: Dwight Goodwin MD - Discharge Diagnosis/Problem(s) (1) 38 weeks gestation of SNOMED Code(s): 06820081 ICD Code: Z3A.38 - 38 WEEKS GESTATION OF Status: Acute Current Visit: Yes (2) Second degree perineal laceration during delivery SNOMED Code(s): 0436571 ICD Code: O70.1 - SECOND DEGREE PERINEAL LACERATION DURING DELIVERY Status : Acute Current Visit: Yes (3) Labor and delivery complicated by cord around neck, without compression, not applicable or unspecified SNOMED Code(s): 525125541, 220126318 ICD Code: O69.81X0 - LABOR AND DEL COMP BY CORD AROUND NECK, W/O COMPRSN, UNSP Status: Acute Current Visit: Yes - Patient Summary/Data Complications: None Consults: None Hospital Course: Uneventful - Patient Instructions Diet: Usual Diet as Tolerated Driving: Do Not Drive (48 hours) Showering/Bathing: May Shower Notify Provider of: Fever, Increased Pain, Swelling and Redness, Drainage, Nausea and/or Vomiting - Discharge Plan *PRESCRIPTION DRUG MONITORING PROGRAM REVIEWED*: Not Applicable *COPY OF PRESCRIPTION DRUG MONITORING REPORT IN PATIENT [place]: Not Applicable Home Medications: Home Meds Docusate Sodium [Colace] 100 mg PO DAILY 12/08/19 [History] Ferrous Gluconate [Iron] 240 mg PO BID 12/08/19 [History] Vit/FA/Fe Fumarate/Se [ MTR] 1 tab PO DAILY 12/08/19 [History] valACYclovir [Valtrex] 1 tab PO BID 12/08/19 [History] Acetaminophen [Tylenol] 650 mg PO Q6H PRN tablet 12/10/19 [Rx] Benzocaine/Menthol [[employer]] 1 spray TOP ASDIRECTED PRN canister 12/10/19 [Rx] Docusate Sodium [Colace] 100 mg PO BID PRN cap 12/10/19 [Rx] Ibuprofen [Motrin] 600 mg PO Q6H PRN tablet 12/10/19 [Rx] witch Payton [Tucks] 1 pad TOP ASDIRECTED PRN pad 12/10/19 [Rx] Referrals: Dwight Goodwin MD [Primary Care Provider] - (Acute appointment to see me on 12/23/2019) - Discharge Summary/Plan Comment DC Time >30 min.: No - General Info Date of Service: 12/10/19 Functional Status: Reports: Pain Controlled - Review of Systems General: Reports: No Symptoms HEENT: Reports: No Symptoms Pulmonary: Reports: No Symptoms Cardiovascular: Reports: No Symptoms Gastrointestinal: Reports: No Symptoms Genitourinary: Reports: No Symptoms Musculoskeletal: Reports: No Symptoms Skin: Reports: No Symptoms Neurological: Reports: No Symptoms Psychiatric: Reports: No Symptoms - Patient Data Vitals - Most Recent: Last Vital Signs Temp 98.1 F 12/10/19 00:56 Pulse 81 12/10/19 00:56 Resp 14 12/10/19 00:56 BP 100/51 L 12/10/19 00:56 Pulse Ox 98 12/10/19 00:56 Weight - Most Recent: 243 lb I&O - Last 24 hours: Intake & Output 12/09/19 12/10/19 12/10/19 22:59 06:59 14:59 Intake Total 320 Balance 320 Lab Results - Last 24 hrs: Laboratory Results - last 24 hr 12/08/19 Range/Units 15:01 RPR Non-reactive (NONREACTIVE) Med Orders - Current: Current Medications Acetaminophen (Tylenol) 650 mg PO Q4H PRN PRN Reason: mild pain or fever Last Admin: 12/09/19 20:10 Dose: 650 mg Benzocaine/Menthol ([employer]) 0 gm TOP ASDIRECTED PRN PRN Reason: Perineal Comfort Measure Last Admin: 12/08/19 17:58 Dose: 1 applic Docusate Sodium (Colace) 100 mg PO BID PRN PRN Reason: Constipation Last Admin: 12/08/19 19:52 Dose: 100 mg Ibuprofen (Motrin) 600 mg PO Q4H PRN PRN Reason: Mild pain or fever Last Admin: 12/10/19 05:12 Dose: 600 mg Witch [place] (Tucks) 1 pad TOP ASDIRECTED PRN PRN Reason: Perineal Comfort Measure Last Admin: 12/08/19 18:00 Dose: 1 pad Discontinued Medications Bupivacaine HCl (Sensorcaine-Mpf 0.25%) 10 ml .ROUTE .STK-MED ONE Stop: 12/08/19 00:01 Diphenhydramine HCl (Benadryl) 25 mg IVPUSH Q6H PRN PRN Reason: pruritis Ephedrine Sulfate (Ephedrine Sulfate) 5 mg IVPUSH ASDIRECTED PRN PRN Reason: Hypotension Fentanyl (Sublimaze) 100 mcg EPIDUR Q3H PRN PRN Reason: Pain Fentanyl/Bupivacaine HCl (Fentanyl/Bupivacaine/Ns 2 Mcg-0.125% 100 Ml) 100 ml EPIDUR ASDIRECTED PRN PRN Reason: Pain Lactated Ringer's (Ringers, Lactated) 1,000 mls @ 100 mls/hr IV ASDIRECTED CESAR Last Admin: 12/08/19 14:50 Dose: 100 mls/hr Oxytocin/Lactated Ringer's (Pitocin In Lr 10 Units/1,000 Ml) 10 unit in 1,000 mls @ 100 mls/hr IV .CONTINUOUS CESAR; Protocol Last Admin: 12/08/19 15:37 Dose: 100 mls/hr Sodium Chloride (Saline Flush) 10 ml FLUSH ASDIRECTED PRN PRN Reason: Keep Vein Open
== END 2019-12-10 11:20 | disposition home or self-care (01) | DRG 807 ==
LOC: JD.OB 14:47 → OBSVTOIN 15:34 → JD.OB 15:35
PROVIDERS: ADMIT Obstetrics & Gynecology; ATTEND Obstetrics & Gynecology
PROC: 10E0XZZ Delivery of Products of Conception, External Approach (ICD-10-PCS; principal; 2019-12-08)
PROC: 0KQM0ZZ Repair Perineum Muscle, Open Approach (ICD-10-PCS; 2019-12-08)
DX: O69.81X0 Labor and delivery complicated by cord around neck, without compression, not applicable or unspecified (principal); Z37.0 Single live birth; Z3A.38 38 weeks gestation of pregnancy; O70.1 Second degree perineal laceration during delivery; Z87.891 Personal history of nicotine dependence
CPT/HCPCS: 36415; 59025; 59409; 85025; 86592; A9270-GY; J2590; J3490; J7120

== ENCOUNTER 2020-03-01 14:38 | Emergency (ER) | payer OTHER ==
[2020-03-01] MEDS ORDERED: LORazepam 1 MG Tab PO STA (15:25)
--- NOTE | 2020-03-01 15:27 | EDM.PDOC ---
<Suzette Chung - Last Filed: 03/01/20 15:43> ED HPI GENERAL MEDICAL PROBLEM - General Chief Complaint: General Stated Complaint: ANXIETY Time Seen by Provider: 03/01/20 15:09 Source of Information: Reports: Patient, RN Notes Reviewed History Limitations: Reports: No Limitations - History of Present Illness INITIAL COMMENTS - FREE TEXT/NARRATIVE: Mariajose present with complaints of shortness of breath and chest heaviness associated with increase anxiety which started around 11:00 today. The anxiety was proceeded by Mariajose was taking an online class when her computer crashed. The class is a two week class and expensive. Then her printer broke down. She states she has had a similar experience about one year ago. She was given lorazepam and started on Lexapro. She was only on Lexapro for two weeks when she became and it was stopped. Upper Abdominal Pain Score (Numeric/FACES): 4 - Related Data Allergies Allergy/AdvReac Type Severity Reaction Status Date / Time sulfamethoxazole Allergy Hives Verified 12/08/19 16:07 [From Bactrim] trimethoprim [From Bactrim] Allergy Hives Verified 12/08/19 16:07 Home Meds: Home Meds Docusate Sodium [Colace] 100 mg PO DAILY 12/08/19 [History] Ferrous Gluconate [Iron] 240 mg PO BID 12/08/19 [History] Vit/FA/Fe Fumarate/Se [ MTR] 1 tab PO DAILY 12/08/19 [History] valACYclovir [Valtrex] 1 tab PO BID 12/08/19 [History] Acetaminophen [Tylenol] 650 mg PO Q6H PRN tablet 12/10/19 [Rx] Benzocaine/Menthol [Dermoplast Pain Relief [place]] 1 spray TOP ASDIRECTED PRN canister 12/10/19 [Rx] Docusate Sodium [Colace] 100 mg PO BID PRN cap 12/10/19 [Rx] Ibuprofen [Motrin] 600 mg PO Q6H PRN tablet 12/10/19 [Rx] witch Alberto [Tucks] 1 pad TOP ASDIRECTED PRN pad 12/10/19 [Rx] LORazepam [Ativan] 1 mg PO Q8HR PRN #10 tablet 03/01/20 [Rx] Past Medical History Cardiovascular History: Reports: None Respiratory History: Reports: None [employer] History: Reports: Psychiatric History: Reports: Anxiety, Depression Hematologic History: Reports: Anemia - Infectious Disease History Infectious Disease History: Reports: Herpes Other Infectious Disease History: Taking Valtrex from 36wks until delivery - Past Surgical History HEENT Surgical History: Reports: Myringotomy w Tube(s), Tonsillectomy - History Comment History Comment: vits and iron and stool softener Social & Family History - Family History Family Medical History: Noncontributory - Caffeine Use Caffeine Use: Reports: None ED ROS GENERAL - Review of Systems Review Of Systems: Comprehensive ROS is negative, except as noted in HPI. ED EXAM, GENERAL - Physical Exam Exam: See Below Exam Limited By: No Limitations General Appearance: Alert, WD/WN, No Apparent Distress, Other (T: 97.5 P: 60 Resp: 22 B/P:) Eye Exam: Bilateral Eye: PERRL Ears: Normal External Exam, Normal Canal, Hearing Grossly Normal, Normal TMs Head: Atraumatic, Normocephalic Neck: Normal Inspection, Supple, Non-Tender, Full Range of Motion Respiratory/Chest: No Respiratory Distress, Lungs Clear, Normal Breath Sounds, No Accessory Muscle Use, Chest Non-Tender Cardiovascular: Normal Peripheral Pulses, Regular Rate, Rhythm, No Edema, No Gallop, No JVD, No Murmur, No Rub GI/Abdominal: Normal Bowel Sounds, Soft, Non-Tender, No Organomegaly, No Distention, No Abnormal Bruit, No Mass Extremities: Normal Inspection, Normal Range of Motion, Non-Tender, Normal Capillary Refill, No Pedal Edema Neurological: Alert, Oriented, CN II-XII Intact, Normal Cognition, Normal Gait, Normal Reflexes, No Motor/Sensory Deficits Psychiatric: Anxious Skin Exam: Warm, Dry, Intact, Normal Color, No Rash Course - Vital Signs Last Recorded V/S: Last Vital Signs Temp 97.5 F 03/01/20 15:04 Pulse 60 03/01/20 15:04 Resp 18 03/01/20 15:04 BP Pulse Ox 98 03/01/20 15:04 - Orders/Labs/Meds Meds: Medications Discontinued Medications Generic Name Dose Route Start Last Admin Trade Name Freq PRN Reason Stop Dose Admin Lorazepam 1 mg 03/01/20 15:25 03/01/20 15:29 Ativan PO 03/01/20 15:26 1 mg ONETIME STA Administration - Re-Assessments/Exams Free Text/Narrative Re-Assessment/Exam: 03/01/20 15:45 Mariajose is a 29 year old female, who present with complaints of shortness of breath and chest heaviness associated with increase anxiety which started around 11:00 today. The anxiety was proceeded by Mariajose was taking an online class when her computer crashed. The class is a two week class and expensive. Then her printer broke down. She states she has had a similar experience about one year ago. She was given lorazepam and started on Lexapro. She was only on Lexapro for two weeks when she became and it was stopped. Mariajose does have a history of depression after the of her second child. She states she has not had any feelings of depression. We will give Mariajose Ativan 1mg for tonight. 03/01/20 15:46 Departure - Departure Disposition: Home, Self-Care 01 Clinical Impression: Anxiety - Discharge Information Prescriptions: LORazepam [Ativan] 1 mg PO Q8HR PRN #10 tablet PRN Reason: Anxiety Referrals: Mariama Arevalo MD [Primary Care Provider] - 1 Week Forms: ED Department Discharge Additional Instructions: Take the ativan every 8 hours as needed for anxiety. You may want to pump and dump a couple times after taking the medications. Follow up with Dr Arevalo. Please return if you are worse. Sepsis Event Note - Evaluation Sepsis Screening Result: No Definite Risk - Focused Exam Vital Signs: Vital Signs Temp Pulse Resp Pulse Ox 03/01/20 15:04 97.5 F 60 18 98 Date Exam was Performed: 03/01/20 Time Exam was Performed: 15:43 <Agustín Seymour - Last Filed: 03/01/20 16:03> Course - Re-Assessments/Exams Free Text/Narrative Re-Assessment/Exam: 03/01/20 15:58 I examined the patient myself and I agree with Cookie's assessment and plan. I ordered ativan and that did help. I will give her couple to help until she sees her doctor about getting on something more longterm. Departure - Departure Time of Disposition: 16:00 Condition: Good - Discharge Information *PRESCRIPTION DRUG MONITORING PROGRAM REVIEWED*: No *COPY OF PRESCRIPTION DRUG MONITORING REPORT IN PATIENT [place]: No Sepsis Event Note - Focused Exam Date Exam was Performed: 03/01/20 Time Exam was Performed: 15:58
== END 2020-03-01 16:29 | disposition home or self-care (01) ==
LOC: JD.ED 14:38
DX: F41.9 Anxiety disorder, unspecified (principal); Z88.2 Allergy status to sulfonamides
CPT/HCPCS: 99284; A9270; 99283

== ENCOUNTER 2022-12-14 10:00 | Inpatient (IN) | payer OTHER ==
[2022-12-14] MEDS ORDERED: Ampicillin 2 GM in Sodium Chloride 0.9% 100 ML IV ONE (13:11)
[2022-12-14] MEDS ORDERED: Acetaminophen 325 MG Tab PO PRN ×2 (13:11→19:23)
[2022-12-14] MEDS ORDERED: Lidocaine 1% 50 ML MDV INJECT PRN (13:11)
[2022-12-14] MEDS ORDERED: Nalbuphine 10 MG/0.5 ML Syringe IVPUSH PRN (13:11)
[2022-12-14] MEDS ORDERED: Ondansetron 4 MG/2 ML SDV IVPUSH PRN (13:11)
[2022-12-14] MEDS ORDERED: Calcium Carbonate 500 MG Tab.Chew PO PRN (13:11)
[2022-12-14] MEDS ORDERED: Oxytocin/Lactated Ringers 10 UNIT/1,000 ML BAG IV SCH ×3 (13:15→19:23)
[2022-12-14] MEDS: Lactated Ringers 1,000 ML IV SCH ×2 (13:46→15:11)
[2022-12-14] MEDS ORDERED: diphenhydrAMINE 50 MG/ML SDV IVPUSH PRN (14:32)
[2022-12-14] MEDS ORDERED: ePHEDrine 50 MG/ML SDV IVPUSH PRN (14:32)
[2022-12-14] MEDS ORDERED: Bupivacaine/fentaNYL/NS 100 ML Bag EPIDUR PRN (14:32)
[2022-12-14] MEDS ORDERED: fentaNYL 100 MCG/2 ML SDV EPIDUR PRN (14:32)
[2022-12-14] MEDS ORDERED: Ampicillin 1 GM in Sodium Chloride 0.9% 100 ML IV SCH (18:00)
[2022-12-14] MEDS ORDERED: Magnesium Hydroxide 400 MG/5 ML Susp 30 ML Cup PO PRN (19:23)
[2022-12-14] MEDS ORDERED: Witch Hazel Medicated Pads 40/Jar TOP PRN (19:23)
[2022-12-14] MEDS ORDERED: Docusate Sodium 100 MG Cap PO PRN (19:23)
[2022-12-14] MEDS ORDERED: Hydrocortisone Acetate 25 MG Supp RECTAL PRN (19:23)
[2022-12-14] MEDS ORDERED: Benzocaine/Menthol 20%-0.5% Spray 78 GM Cannister TOP PRN (19:23)
[2022-12-14] MEDS: Ibuprofen 600 MG Tab PO PRN (20:30)
[2022-12-15] MEDS: Ibuprofen 600 MG Tab PO PRN ×2 (05:21→12:33)
[2022-12-15] MEDS ORDERED: Prenatal Multivitamin with Calcium/Folic Acid/Iron Tab PO SCH (09:00)
== END 2022-12-15 18:45 | disposition home or self-care (01) | DRG 806 ==
LOC: JD.OBCHECK 10:00 → JD.OB 10:03 → JD.OBCHECK 13:26 → JD.OB 13:26 → OBSVTOIN 18:04 → JD.OB 18:05
PROVIDERS: ADMIT Obstetrics & Gynecology; ATTEND Obstetrics & Gynecology
PROC: 10E0XZZ Delivery of Products of Conception, External Approach (ICD-10-PCS; principal; 2022-12-14)
PROC: 0KQM0ZZ Repair Perineum Muscle, Open Approach (ICD-10-PCS; 2022-12-14)
PROC: 10907ZC Drainage of Amniotic Fluid, Therapeutic from Products of Conception, Via Natural or Artificial Opening (ICD-10-PCS; 2022-12-14)
PROC: 3E0R3BZ Introduction of Anesthetic Agent into Spinal Canal, Percutaneous Approach (ICD-10-PCS; 2022-12-14)
PROC: 00HU33Z Insertion of Infusion Device into Spinal Canal, Percutaneous Approach (ICD-10-PCS; 2022-12-14)
DX: O99.344 Other mental disorders complicating childbirth (principal); O98.32 Other infections with a predominantly sexual mode of transmission complicating childbirth; Z37.0 Single live birth; F41.9 Anxiety disorder, unspecified; F32.A Depression, unspecified; O99.214 Obesity complicating childbirth; O99.824 Streptococcus B carrier state complicating childbirth; A60.09 Herpesviral infection of other urogenital tract; O77.0 Labor and delivery complicated by meconium in amniotic fluid; Z3A.39 39 weeks gestation of pregnancy; O70.1 Second degree perineal laceration during delivery
CPT/HCPCS: 36415; 51702; 59025; 59409; 85025; 86592; A9270-GY; J0290; J2590; J3010; J3490; J7120

== ENCOUNTER 2025-01-10 19:26 | Emergency (ER) | payer OTHER ==
[2025-01-10] MEDS: Ketorolac 30 MG/ML SDV IM ONE (20:26)
== END 2025-01-10 20:31 | disposition home or self-care (01) ==
LOC: JD.ED 19:26
DX: M54.2 Cervicalgia (principal); E66.9 Obesity, unspecified; Z68.37 Body mass index [BMI] 37.0-37.9, adult; Z88.8 Allergy status to other drugs, medicaments and biological substances; Z79.899 Other long term (current) drug therapy
CPT/HCPCS: 96372; 99283; J1885